=== PATIENT | female | born 1975 | race Hispanic/Latino ===

== ENCOUNTER 2017-02-27 17:06 | Emergency (ER) | payer MEDICAID, OTHER ==
[2017-02-27 23:27] LABS: Basophils % (Auto) 0.6 % (0.0-1.8); Eosinophils % (Auto) 5.6 % (0.0-4.3); Hemoglobin 11.5 gm/dl (10.1-14.3); Mean Corpuscular HGB Conc 33 % (30-34); Mean Corpuscular Hemoglobin 32 pg (28-32); Mean Corpuscular Volume 97 fl (79-97); Platelet Count 251 K/mm3 (140-440); Red Blood Count 3.61 M/mm3 (3.65-5.03); Red Cell Distribution Width 13.7 % (13.2-15.2); White Blood Count 6.9 K/mm3 (4.5-11.0)
--- NOTE | 2017-02-27 23:38 | Emergency Department Report ---
ED Psych HPI - General Chief Complaint: Medical Clearance Stated Complaint: MEDICAL CLEARENCE Time Seen by Provider: 02/27/17 23:05 Source: patient Mode of arrival: Ambulatory - History of Present Illness Complaint: feels depressed, other (detox from benzos , pain medication and etoh) -: Gradual Associated Psychiatric Symptoms: depression History of same: Yes Quality: constant Improves With: none Worsens With: none Context: recent alcohol abuse Associated Symptoms: insomnia. denies: confusion, headache, shortness of breath , nausea, vomiting, syncope Treatments Prior to Arrival: none - Related Data Home Medications Medication Instructions Recorded Confirmed Last Taken Buprenorphine HCl/Naloxone HCl 2 - 8 mg SL TID 04/01/15 04/01/15 03/30/15 [Suboxone 8 mg-2 mg SL Film] Gabapentin [Neurontin] 300 mg PO TID 04/01/15 04/01/15 03/31/15 PARoxetine [Paxil] 20 mg PO DAILY 04/01/15 04/01/15 03/31/15 clonazePAM 1 mg PO TID 04/01/15 04/01/15 03/31/15 Allergies Allergy/AdvReac Type Severity Reaction Status Date / Time penicillin Allergy Unknown Verified 04/01/15 02:23 ED Review of Systems ROS: Stated complaint: MEDICAL CLEARENCE Other details as noted in HPI Comment: All other systems reviewed and negative ED Past Medical Hx - Past Medical History Previous Medical History?: Yes Hx Psychiatric Treatment: Yes Additional medical history: Fibromyalgia - Surgical History Past Surgical History?: Yes Additional Surgical History: leg, jaw, back, pelvis, hip, knee - Social History Smoking Status: Current Every Day Smoker Substance Use Type: None, Alcohol - Medications Home Medications: Home Medications Medication Instructions Recorded Confirmed Last Taken Type Buprenorphine HCl/Naloxone HCl 2 - 8 mg SL TID 04/01/15 04/01/15 03/30/15 History [Suboxone 8 mg-2 mg SL Film] Gabapentin [Neurontin] 300 mg PO TID 04/01/15 04/01/15 03/31/15 History PARoxetine [Paxil] 20 mg PO DAILY 04/01/15 04/01/15 03/31/15 History clonazePAM 1 mg PO TID 04/01/15 04/01/15 03/31/15 History ED Physical Exam - General Limitations: No Limitations General appearance: alert, in no apparent distress - Head Head exam: Present: atraumatic, normocephalic - Eye Eye exam: Present: normal appearance, PERRL, EOMI - ENT ENT exam: Present: normal exam, normal orophraynx, mucous membranes moist - Neck Neck exam: Present: normal inspection - Respiratory Respiratory exam: Present: normal lung sounds bilaterally. Absent: respiratory distress - Cardiovascular Cardiovascular Exam: Present: regular rate, normal rhythm. Absent: systolic murmur, diastolic murmur, rubs, gallop - GI/Abdominal GI/Abdominal exam: Present: soft, normal bowel sounds - Extremities Exam Extremities exam: Present: normal inspection - Back Exam Back exam: Present: normal inspection - Neurological Exam Neurological exam: Present: alert, oriented X3 - Psychiatric Psychiatric exam: Present: depressed. Absent: agitated, anxious, flat affect, manic, homicidal ideation, suicidal ideation - Skin Skin exam: Present: warm, dry, intact, normal color. Absent: rash ED Course Vital Signs 02/27/17 02/27/17 17:21 22:21 Temperature 98.4 F 98.3 F Pulse Rate 98 H 93 H Respiratory 18 18 Rate Blood Pressure 113/78 Blood Pressure 126/89 [Right] O2 Sat by Pulse 100 100 Oximetry ED Medical Decision Making - Lab Data Result diagrams: 02/27/17 23:14 02/27/17 23:14 - Medical Decision Making here for medical clearnce , she is doing well and stable , already has bed at [facility] just need to get cleared. Critical care attestation.: If time is entered above; I have spent that time in minutes in the direct care of this critically ill patient, excluding procedure time. ED Disposition Clinical Impression: Opioid abuse, Substance abuse Disposition: DC-01 TO HOME OR SELFCARE Is pt being admited?: No Does the pt Need Aspirin: No Condition: Good Referrals: PRIMARY CARE, [Primary Care Provider] - 3-5 Days Time of Disposition: 00:44
[2017-02-27 23:46] LABS: Alanine Aminotransferase 23 units/L (7-56); Albumin 3.8 g/dL (3.9-5); Albumin/Globulin Ratio 1.4 %; Alkaline Phosphatase 104 units/L (35-129); Anion Gap 16 mmol/L; Bilirubin,Total < 0.20 mg/dL (0.1-1.2); Blood Urea Nitrogen 10 mg/dL (7-17); Calcium 8.7 mg/dL (8.4-10.2); Carbon Dioxide 26 mmol/L (22-30); Chloride 98.4 mmol/L (98-107); Glucose 136 mg/dL (65-100); Potassium 3.6 mmol/L (3.6-5.0); Sodium 137 mmol/L (137-145); Total Protein 6.5 g/dL (6.3-8.2)
[2017-02-28 01:08] VITALS: BP 120/80
[2017-02-28 01:33] LABS: Urine Drugs of Abuse Note Disclamer
== END 2017-02-28 01:10 | disposition home or self-care (01) ==
LOC: ED 17:06
DX: T42.4X5A Adverse effect of benzodiazepines, initial encounter (principal); F11.10 Opioid abuse, uncomplicated; F17.200 Nicotine dependence, unspecified, uncomplicated; Y92.9 Unspecified place or not applicable
CPT/HCPCS: 36415; 80053; 80307; 81025; 85025